=== PATIENT | female | born 1930 | race Caucasian/White ===

== ENCOUNTER 2017-06-10 09:54 | Inpatient (IN) | payer MEDICARE ==
[~2017-06-10] VITALS: Ht 170.2 cm; Wt 65.1 kg
[2017-06-10] MEDS ORDERED: IBUP-1484 PO (10:28)
[2017-06-10] MEDS ORDERED: DIGO125T PO (10:28)
[2017-06-10] MEDS ORDERED: SODIUM CHLORIDE FLUSH 10ML SYR IVF ONE (11:00)
[2017-06-10] MEDS ORDERED: CEFTRIAXONE PMX 1GM/50ML 50 ML IV ONE (11:00)
[2017-06-10 11:46] LABS: BASOPHILS % (AUTO) 0 % (0-1); EOSINOPHILS # (AUTO) 0.01 x10^3/uL (0-0.4); EOSINOPHILS % (AUTO) 0 % (1-7); LYMPHOCYTES % (AUTO) 5 % (22-44); MD NO; MEAN CORPUSCULAR HGB CONC 32.9 g/dL (32.4-35.8); MEAN CORPUSCULAR VOLUME 94.2 fL (80-100); MEAN PLATELET VOLUME 8.4 fL (7.4-10.4); MONOCYTES # (AUTO) 0.09 x10^3/uL (0.2-0.8); MONOCYTES % (AUTO) 1 % (2-9); NEUTROPHILS # (AUTO) 7.58 x10^3/uL (1.8-6.8); NEUTROPHILS % (AUTO) 94 % (42-75); PLATELET COUNT 175 x10^3/uL (130-400); RED BLOOD COUNT 4.66 x10^6/uL (3.82-5.3); RED CELL DISTRIBUTION WIDTH 18.1 % (9.6-15.2)
[2017-06-10 11:53] LABS: INTERNATIONAL NORMALIZED RATIO 1.45 (0.93-1.1)
[2017-06-10 11:57] LABS: ALANINE AMINOTRANSFERASE 16 U/L (12-78); ALBUMIN 2.5 g/dL (3.4-5.0); ANION GAP 9 mmol/L (5-15); CALCIUM 7.6 mg/dL (8.5-10.1); CHLORIDE 109 mmol/L (98-107); CREATININE 0.78 mg/dL (0.55-1.02)
[2017-06-10 11:59] LABS: ALKALINE PHOSPHATASE 63 U/L (45-117); BILIRUBIN,TOTAL 1.7 mg/dL (0.2-1.0); TOTAL PROTEIN 5.5 g/dL (6.4-8.2)
[2017-06-10] MEDS ORDERED: CEFTRIAXONE PMX 1GM/50ML 50 ML ONE (12:01)
[2017-06-10 12:52] LABS: CULTURE INDICATED? YES; MICROSCOPIC INDICATED
[2017-06-10] MEDS ORDERED: SODIUM CHLORIDE 0.9%, 500ML IVBOLUS ONE (14:00)
[2017-06-10] MEDS ORDERED: LABETALOL 5MG/ML, 20ML IVPush PRN (14:30)
[2017-06-10] MEDS ORDERED: ONDANSETRON 2MG/ML, 2ML IVPush PRN (14:30)
[2017-06-10] MEDS ORDERED: ONDANSETRON ODT 4 MG PO PRN (14:30)
[2017-06-10] MEDS ORDERED: BISACODYL 10 MG SUPP PR PRN (14:30)
[2017-06-10] MEDS ORDERED: ACETAMINOPHEN 325 MG TABLET PO PRN (14:30)
[2017-06-10] MEDS ORDERED: TRAZODONE 50MG TABLET PO PRN (14:30)
[2017-06-10] MEDS ORDERED: POLYETHYLENE GLYCOL 17 GM PACKET PO PRN (14:30)
[2017-06-10] MEDS ORDERED: DOCUSATE 100 MG CAPSULE PO PRN (14:30)
[2017-06-10] MEDS ORDERED: LIDOCAINE 1%, 20ML ONE (15:35)
[2017-06-10 15:36] LABS: HCT (SEDRATE) 43.9 % (34.6-47.8)
[2017-06-10 15:39] LABS: C-REACTIVE PROTEIN, QUANT 5.8 mg/dL (0.02-0.49); THYROID STIMULATING HORMONE 2.54 mIU/L (0.358-3.740)
[2017-06-10 16:30] LABS: HEMOGLOBIN A1C 5.4 % (4.2-6.3)
[2017-06-10] MEDS ORDERED: HEPARIN 5,000 UNITS/ML, 1ML ONE (17:27)
[2017-06-10] MEDS: HEPARIN 5,000 UNITS/ML, 1ML SQ SCH (17:28)
[2017-06-10 18:38] VITALS: BP 115/67
[2017-06-10 20:00] VITALS: BP 119/76
[2017-06-10] MEDS: FUROSEMIDE 40 MG/4 ML IV SCH (21:11)
[2017-06-10] MEDS: FAMOTIDINE 20 MG TABLET PO SCH (21:14)
[2017-06-11] MEDS ORDERED: CEFTRIAXONE PMX 1GM/50ML 50 ML IV SCH
[2017-06-11] MEDS: CEFTRIAXONE 1,000 MG in DEXTROSE 5% 50 ML IV SCH ×2 (00:07→12:04)
[2017-06-11] MEDS: HEPARIN 5,000 UNITS/ML, 1ML SQ SCH ×3 (01:05→16:38)
[2017-06-11 01:26] VITALS: BP 124/75
[2017-06-11] MEDS: ASPIRIN 325 MG TABLET EC PO SCH (05:37)
[2017-06-11 05:56] LABS: CHLORIDE 106 mmol/L (98-107)
[2017-06-11 06:00] LABS: BASOPHILS % (AUTO) 0 % (0-1); EOSINOPHILS # (AUTO) 0.03 x10^3/uL (0-0.4); EOSINOPHILS % (AUTO) 0 % (1-7); LYMPHOCYTES # (AUTO) 0.83 x10^3/uL (1-3.4); LYMPHOCYTES % (AUTO) 8 % (22-44); MD NO; MEAN CORPUSCULAR HEMOGLOBIN 31.5 pg (27.0-34.8); MEAN CORPUSCULAR HGB CONC 33.2 g/dL (32.4-35.8); MEAN CORPUSCULAR VOLUME 94.9 fL (80-100); MEAN PLATELET VOLUME 8.8 fL (7.4-10.4); MONOCYTES # (AUTO) 0.52 x10^3/uL (0.2-0.8); MONOCYTES % (AUTO) 5 % (2-9); NEUTROPHILS # (AUTO) 9.25 x10^3/uL (1.8-6.8); NEUTROPHILS % (AUTO) 87 % (42-75); PLATELET COUNT 171 x10^3/uL (130-400); RED BLOOD COUNT 4.74 x10^6/uL (3.82-5.3); RED CELL DISTRIBUTION WIDTH 18.3 % (9.6-15.2)
[2017-06-11 06:05] LABS: ANION GAP 6 mmol/L (5-15); CALCIUM 7.7 mg/dL (8.5-10.1); CHOL/HDL RATIO 1.9; CHOLESTEROL, TOTAL 77 mg/dL (140-239); CREATININE 0.85 mg/dL (0.55-1.02); HDL CHOL % 53 % (28-40); HDL CHOLESTEROL (DIRECT) 41 mg/dL (40-60); LDL CHOLESTEROL,CALCULATED 24 mg/dL (54-169); LDL/HDL RATIO 0.6 (0.5-3.0); TRIGLYCERIDES 60 mg/dL (50-200); VLDL CHOLESTEROL 12 mg/dL (0-25)
[2017-06-11 07:11] VITALS: BP 119/76
[2017-06-11] MEDS: FUROSEMIDE 40 MG/4 ML IV SCH ×2 (08:40→20:53)
[2017-06-11] MEDS: FAMOTIDINE 20 MG TABLET PO SCH ×2 (08:46→20:57)
[2017-06-11 16:09] VITALS: BP 125/60
[2017-06-11 20:00] VITALS: BP 101/61
[2017-06-12] MEDS: CEFTRIAXONE 1,000 MG in DEXTROSE 5% 50 ML IV SCH ×2 (00:42→11:51)
[2017-06-12] MEDS: HEPARIN 5,000 UNITS/ML, 1ML SQ SCH ×3 (00:42→16:15)
[2017-06-12 02:00] VITALS: BP 104/54
[2017-06-12 05:48] LABS: BASOPHILS # (AUTO) 0.01 x10^3/uL (0-0.1); BASOPHILS % (AUTO) 0 % (0-1); EOSINOPHILS # (AUTO) 0.09 x10^3/uL (0-0.4); EOSINOPHILS % (AUTO) 1 % (1-7); LYMPHOCYTES # (AUTO) 1.09 x10^3/uL (1-3.4); LYMPHOCYTES % (AUTO) 10 % (22-44); MD NO; MEAN CORPUSCULAR HEMOGLOBIN 31.2 pg (27.0-34.8); MEAN CORPUSCULAR HGB CONC 32.6 g/dL (32.4-35.8); MEAN CORPUSCULAR VOLUME 95.9 fL (80-100); MEAN PLATELET VOLUME 9.1 fL (7.4-10.4); MONOCYTES # (AUTO) 0.63 x10^3/uL (0.2-0.8); MONOCYTES % (AUTO) 6 % (2-9); NEUTROPHILS # (AUTO) 9.28 x10^3/uL (1.8-6.8); NEUTROPHILS % (AUTO) 84 % (42-75); PLATELET COUNT 171 x10^3/uL (130-400); RED BLOOD COUNT 4.54 x10^6/uL (3.82-5.3); RED CELL DISTRIBUTION WIDTH 18.3 % (9.6-15.2)
[2017-06-12] MEDS: ASPIRIN 325 MG TABLET EC PO SCH (05:48)
[2017-06-12 06:07] LABS: ANION GAP 6 mmol/L (5-15); CALCIUM 7.3 mg/dL (8.5-10.1); CHLORIDE 104 mmol/L (98-107)
[2017-06-12 06:10] LABS: CREATININE 1.03 mg/dL (0.55-1.02)
[2017-06-12 06:55] VITALS: BP 132/81
[2017-06-12] MEDS: FAMOTIDINE 20 MG TABLET PO SCH ×2 (09:00→19:52)
[2017-06-12] MEDS: FUROSEMIDE 40 MG/4 ML IV SCH ×2 (09:50→19:52)
[2017-06-12 13:38] VITALS: BP 109/71
[2017-06-12 19:11] VITALS: BP 114/73
[2017-06-13] MEDS: CEFTRIAXONE 1,000 MG in DEXTROSE 5% 50 ML IV SCH ×2 (00:41→11:22)
[2017-06-13] MEDS: HEPARIN 5,000 UNITS/ML, 1ML SQ SCH ×2 (00:42→08:54)
[2017-06-13 00:55] VITALS: BP 143/81
[2017-06-13] MEDS: ASPIRIN 325 MG TABLET EC PO SCH (05:22)
[2017-06-13] MEDS ORDERED: FURO20TA3 PO ×2 (06:33→06:46)
[2017-06-13] MEDS ORDERED: ACET325T14 PO (06:33)
[2017-06-13 08:00] VITALS: BP 123/69
[2017-06-13] MEDS: FAMOTIDINE 20 MG TABLET PO SCH (08:54)
[2017-06-13] MEDS ORDERED: PNEUMOCOCCAL 23 VACCINE IM-VACC ONE (11:30)
[2017-06-13 12:28] VITALS: BP 112/76
[2017-06-13 12:45] VITALS: BP 112/76
== END 2017-06-13 14:43 | DRG 871 ==
LOC: ED 13:07 → EDIP 13:08 → ED 13:39 → 4EST 18:09
PROVIDERS: ADMIT Internal Medicine; ATTEND Internal Medicine
PROC: 0W9B3ZZ Drainage of Left Pleural Cavity, Percutaneous Approach (ICD-10-PCS; principal; 2017-06-10)
PROC: 0T9B70Z Drainage of Bladder with Drainage Device, Via Natural or Artificial Opening (ICD-10-PCS; 2017-06-10)
DX: A41.9 Sepsis, unspecified organism (principal); I50.33 Acute on chronic diastolic (congestive) heart failure; G93.41 Metabolic encephalopathy; J90 Pleural effusion, not elsewhere classified; E44.0 Moderate protein-calorie malnutrition; D68.9 Coagulation defect, unspecified; L03.115 Cellulitis of right lower limb; I48.91 Unspecified atrial fibrillation; E83.51 Hypocalcemia; L03.116 Cellulitis of left lower limb; N39.0 Urinary tract infection, site not specified; J98.11 Atelectasis; R17 Unspecified jaundice; R09.02 Hypoxemia; F03.90 Unspecified dementia, unspecified severity, without behavioral disturbance, psychotic disturbance, mood disturbance, and anxiety; I73.9 Peripheral vascular disease, unspecified; Z87.891 Personal history of nicotine dependence; Z23 Encounter for immunization; Z68.22 Body mass index [BMI] 22.0-22.9, adult
CPT/HCPCS: 32555; 36415; 70450; 71045; 80048; 80053; 80061; 81001; 82042; 82150; 82945; 83036; 83605; 83615; 83690; 83735; 83986; 84100; 84145; 84157; 84443; 84560; 85025; 85610; 85651; 86140; 87015; 87040; 87070; 87075; 87086; 87102; 87116; 87205; 87206; 88112; 88305; 89050; 89051; 90732; 93005; 93306; 96365; 96372; J0696; J1644; J1940; J3490; J7040

== ENCOUNTER 2017-12-19 12:24 | Inpatient (IN) | payer MEDICARE ==
[~2017-12-19] VITALS: Ht 160 cm; Wt 51.0 kg
[~2017-12-19 12:24] MED LIST: ACET325T14 PO; DIGO125T PO; FURO20TA3 PO; IBUP-1484 PO
[2017-12-19] MEDS ORDERED: CEFTRIAXONE 1,000 MG in SODIUM CHLORIDE 0.9% 50 ML IVPB ONE (13:00)
[2017-12-19] MEDS ORDERED: SODIUM CHLORIDE 0.9% 1,000ML IVBOLUS ONE (13:00)
[2017-12-19] MEDS ORDERED: SODIUM CHLORIDE FLUSH 10ML SYR IVF ONE (13:00)
[2017-12-19] MEDS ORDERED: CEFTRIAXONE PMX 1GM/50ML 50 ML ONE (13:14)
[2017-12-19] MEDS ORDERED: MULT-257 PO (13:22)
[2017-12-19 13:30] LABS: ALBUMIN 3.4 g/dL (3.4-5.0); ANION GAP 8 mmol/L (5-15); CHLORIDE 108 mmol/L (98-107)
[2017-12-19 13:36] LABS: ALANINE AMINOTRANSFERASE 18 U/L (12-78); ALKALINE PHOSPHATASE 93 U/L (45-117); BILIRUBIN,TOTAL 1.7 mg/dL (0.2-1.0); CREATININE 0.92 mg/dL (0.55-1.02); TOTAL PROTEIN 7.3 g/dL (6.4-8.2); TROPONIN I 0.038 ng/mL (0.000-0.045)
[2017-12-19 13:51] LABS: BASOPHILS # (AUTO) 0.05 x10^3/uL (0-0.1); BASOPHILS % (AUTO) 1 % (0-1); EOSINOPHILS # (AUTO) 0.04 x10^3/uL (0-0.4); EOSINOPHILS % (AUTO) 1 % (1-7); LYMPHOCYTES # (AUTO) 1.36 x10^3/uL (1-3.4); LYMPHOCYTES % (AUTO) 17 % (22-44); MD SCAN; MEAN CORPUSCULAR HEMOGLOBIN 31.7 pg (27.0-34.8); MEAN CORPUSCULAR HGB CONC 32.9 g/dL (32.4-35.8); MEAN CORPUSCULAR VOLUME 96.1 fL (80-100); MEAN PLATELET VOLUME 7.9 fL (7.4-10.4); MONOCYTES # (AUTO) 0.49 x10^3/uL (0.2-0.8); MONOCYTES % (AUTO) 6 % (2-9); NEUTROPHILS # (AUTO) 6.05 x10^3/uL (1.8-6.8); NEUTROPHILS % (AUTO) 76 % (42-75); PLATELET COUNT 239 x10^3/uL (130-400); RED BLOOD COUNT 4.15 x10^6/uL (3.82-5.3); RED CELL DISTRIBUTION WIDTH 17.1 % (9.6-15.2)
[2017-12-19] MEDS ORDERED: METOPROLOL 1 MG/ML, 5ML IVPush ONE (14:16)
[2017-12-19] MEDS ORDERED: METOPROLOL 1 MG/ML, 5ML ONE (14:17)
[2017-12-19] MEDS ORDERED: FUROSEMIDE 40 MG/4 ML ONE (15:11)
[2017-12-19 15:12] LABS: MICROSCOPIC INDICATED
[2017-12-19 15:27] LABS: CULTURE INDICATED? NO
[2017-12-19] MEDS ORDERED: FUROSEMIDE 40 MG/4 ML IV ONE (15:30)
[2017-12-19] MEDS ORDERED: ONDANSETRON ODT 4 MG PO PRN (16:30)
[2017-12-19] MEDS ORDERED: DOCUSATE 100 MG CAPSULE PO PRN (16:30)
[2017-12-19] MEDS ORDERED: GABAPENTIN 300 MG CAPSULE PO PRN (16:30)
[2017-12-19] MEDS ORDERED: PROMETHAZINE 25 MG/ML, 1ML IM PRN (16:30)
[2017-12-19] MEDS ORDERED: hydrALAzine 20 MG/ML, 1ML IVPush PRN (16:30)
[2017-12-19] MEDS ORDERED: LABETALOL 5MG/ML, 20ML IVPush PRN (16:30)
[2017-12-19] MEDS ORDERED: ACETAMINOPHEN 325 MG TABLET PO PRN (16:30)
[2017-12-19] MEDS ORDERED: MORPHINE SULFATE 4 MG/ML, 1ML IVPush PRN (16:30)
[2017-12-19] MEDS ORDERED: ONDANSETRON 2MG/ML, 2ML IVPush PRN (16:30)
[2017-12-19] MEDS: FUROSEMIDE 20 MG/2 ML IV SCH (16:30)
[2017-12-19] MEDS ORDERED: BISACODYL 10 MG SUPP PR PRN (16:30)
[2017-12-19] MEDS ORDERED: POLYETHYLENE GLYCOL 17 GM PACKET PO PRN (16:30)
[2017-12-19 16:44] LABS: FREE T4 (FREE THYROXINE) 1.11 ng/dL (0.76-1.46)
[2017-12-19 16:55] LABS: HEMOGLOBIN A1C 5.6 % (4.2-6.3)
[2017-12-19] MEDS ORDERED: ALBUTEROL SULFATE 2.5 MG/3 ML ONE (17:13)
[2017-12-19] MEDS ORDERED: OMNIPAQUE 350 MG/ML, 100ML BOTTLE ONE (17:17)
[2017-12-19] MEDS ORDERED: ALBUTEROL SULFATE 2.5 MG/3 ML NPPB PRN (18:00)
[2017-12-19 20:10] VITALS: BP 144/81
[2017-12-19] MEDS: HEPARIN 5,000 UNITS/ML, 1ML SQ SCH (20:57)
[2017-12-19] MEDS ORDERED: FURO40SO5 PO (21:02)
[2017-12-19] MEDS ORDERED: DIGO0.12 PO (21:03)
[2017-12-19 21:09] VITALS: BP 144/81
[2017-12-19] MEDS ORDERED: hydrALAzine 20 MG/ML, 1ML ONE (22:42)
[2017-12-20] MEDS: HEPARIN 5,000 UNITS/ML, 1ML SQ SCH ×3 (00:01→17:33)
[2017-12-20 02:15] VITALS: BP 136/76
[2017-12-20 05:43] LABS: BASOPHILS # (AUTO) 0.03 x10^3/uL (0-0.1); BASOPHILS % (AUTO) 0 % (0-1); EOSINOPHILS # (AUTO) 0.02 x10^3/uL (0-0.4); EOSINOPHILS % (AUTO) 0 % (1-7); LYMPHOCYTES # (AUTO) 1.02 x10^3/uL (1-3.4); LYMPHOCYTES % (AUTO) 13 % (22-44); MD NO; MEAN CORPUSCULAR HEMOGLOBIN 31.4 pg (27.0-34.8); MEAN CORPUSCULAR HGB CONC 32.6 g/dL (32.4-35.8); MEAN CORPUSCULAR VOLUME 96.4 fL (80-100); MEAN PLATELET VOLUME 8.4 fL (7.4-10.4); MONOCYTES # (AUTO) 0.66 x10^3/uL (0.2-0.8); MONOCYTES % (AUTO) 8 % (2-9); NEUTROPHILS # (AUTO) 6.41 x10^3/uL (1.8-6.8); NEUTROPHILS % (AUTO) 79 % (42-75); PLATELET COUNT 205 x10^3/uL (130-400); RED CELL DISTRIBUTION WIDTH 16.5 % (9.6-15.2)
[2017-12-20 05:55] LABS: ALANINE AMINOTRANSFERASE 21 U/L (12-78); ALBUMIN 3.2 g/dL (3.4-5.0); ANION GAP 9 mmol/L (5-15); CALCIUM 8.5 mg/dL (8.5-10.1); CHLORIDE 106 mmol/L (98-107)
[2017-12-20] MEDS: ASPIRIN 325 MG TABLET EC PO SCH (06:00)
[2017-12-20 06:06] LABS: ALKALINE PHOSPHATASE 84 U/L (45-117); BILIRUBIN,TOTAL 1.5 mg/dL (0.2-1.0); CREATININE 0.91 mg/dL (0.55-1.02)
[2017-12-20 08:04] VITALS: BP 174/99
[2017-12-20] MEDS: FUROSEMIDE 20 MG/2 ML IV SCH (10:14)
[2017-12-20] MEDS ORDERED: LIDOCAINE-MPF 2%, 2ML ONE (14:32)
[2017-12-20 15:54] VITALS: BP 142/94
[2017-12-20] MEDS: MULTIVITAMINS/MINERALS TABLET PO SCH (17:35)
[2017-12-20] MEDS: CHOLECALCIFEROL 1,000 UNIT TABLET PO SCH (17:35)
[2017-12-20 19:28] VITALS: BP 138/74
[2017-12-21 01:25] VITALS: BP 132/75
[2017-12-21] MEDS: HEPARIN 5,000 UNITS/ML, 1ML SQ SCH ×3 (02:19→18:01)
[2017-12-21 04:34] LABS: ANION GAP 6 mmol/L (5-15); CALCIUM 8.2 mg/dL (8.5-10.1); CHLORIDE 106 mmol/L (98-107); CREATININE 0.91 mg/dL (0.55-1.02)
[2017-12-21 07:25] VITALS: BP 132/60
[2017-12-21] MEDS: FUROSEMIDE 20 MG/2 ML IV SCH (09:56)
[2017-12-21] MEDS: CHOLECALCIFEROL 1,000 UNIT TABLET PO SCH (09:56)
[2017-12-21] MEDS: MULTIVITAMINS/MINERALS TABLET PO SCH (09:56)
[2017-12-21] MEDS: ASPIRIN 325 MG TABLET EC PO SCH (09:56)
[2017-12-21 13:13] VITALS: BP 122/79
[2017-12-21] MEDS: METOPROLOL TARTRATE 25 MG TABLET PO SCH (18:01)
[2017-12-21 19:08] VITALS: BP 122/76
[2017-12-22 01:32] VITALS: BP 128/76
[2017-12-22] MEDS: HEPARIN 5,000 UNITS/ML, 1ML SQ SCH ×3 (01:43→17:43)
[2017-12-22] MEDS: ASPIRIN 325 MG TABLET EC PO SCH ×2 (05:15→09:53)
[2017-12-22] MEDS: METOPROLOL TARTRATE 25 MG TABLET PO SCH ×3 (05:15→17:44)
[2017-12-22 08:00] VITALS: BP 129/68
[2017-12-22] MEDS: CHOLECALCIFEROL 1,000 UNIT TABLET PO SCH (09:54)
[2017-12-22] MEDS: FUROSEMIDE 20 MG/2 ML IV SCH (09:54)
[2017-12-22] MEDS: MULTIVITAMINS/MINERALS TABLET PO SCH (09:54)
[2017-12-22 13:21] VITALS: BP 136/89
[2017-12-22 20:00] VITALS: BP 124/75
[2017-12-23] MEDS: HEPARIN 5,000 UNITS/ML, 1ML SQ SCH ×3 (01:41→17:58)
[2017-12-23 01:58] VITALS: BP 138/85
[2017-12-23 05:34] VITALS: BP 150/83
[2017-12-23] MEDS: METOPROLOL TARTRATE 25 MG TABLET PO SCH ×2 (05:37→17:58)
[2017-12-23] MEDS: ASPIRIN 325 MG TABLET EC PO SCH (05:37)
[2017-12-23 07:18] VITALS: BP 142/87
[2017-12-23] MEDS: MULTIVITAMINS/MINERALS TABLET PO SCH (08:50)
[2017-12-23] MEDS: CHOLECALCIFEROL 1,000 UNIT TABLET PO SCH (08:51)
[2017-12-23] MEDS: FUROSEMIDE 20 MG/2 ML IV SCH (08:51)
[2017-12-23 14:18] VITALS: BP 126/68
[2017-12-23 20:00] VITALS: BP 107/67
[2017-12-24] MEDS: HEPARIN 5,000 UNITS/ML, 1ML SQ SCH ×3 (01:34→17:34)
[2017-12-24 01:51] VITALS: BP 145/84
[2017-12-24] MEDS: METOPROLOL TARTRATE 25 MG TABLET PO SCH ×2 (06:07→17:40)
[2017-12-24] MEDS: ASPIRIN 325 MG TABLET EC PO SCH (06:10)
[2017-12-24 07:09] VITALS: BP 150/97
[2017-12-24] MEDS: MULTIVITAMINS/MINERALS TABLET PO SCH (08:21)
[2017-12-24] MEDS: CHOLECALCIFEROL 1,000 UNIT TABLET PO SCH (08:21)
[2017-12-24] MEDS ORDERED: FUROSEMIDE 40 MG TABLET PO SCH (09:00)
[2017-12-24 12:17] VITALS: BP 142/88
[2017-12-24 20:17] VITALS: BP 136/73
[2017-12-25] MEDS: HEPARIN 5,000 UNITS/ML, 1ML SQ SCH (01:31)
[2017-12-25 01:48] VITALS: BP 113/62
[2017-12-25] MEDS: ASPIRIN 325 MG TABLET EC PO SCH (06:00)
[2017-12-25] MEDS: METOPROLOL TARTRATE 25 MG TABLET PO SCH ×2 (06:17→18:09)
[2017-12-25 08:04] VITALS: BP 97/55
[2017-12-25] MEDS: CHOLECALCIFEROL 1,000 UNIT TABLET PO SCH (09:54)
[2017-12-25] MEDS: MULTIVITAMINS/MINERALS TABLET PO SCH (09:55)
[2017-12-25] MEDS: FUROSEMIDE 40 MG TABLET PO SCH ×2 (09:55→20:39)
[2017-12-25] MEDS: ENOXAPARIN 40 MG/0.4 ML SQ SCH (09:56)
[2017-12-25 12:46] VITALS: BP 95/58
[2017-12-25 18:07] VITALS: BP 127/44
[2017-12-25 18:55] VITALS: BP 123/75
[2017-12-26 00:10] VITALS: BP 142/90
[2017-12-26] MEDS: METOPROLOL TARTRATE 25 MG TABLET PO SCH (05:51)
[2017-12-26] MEDS: ASPIRIN 325 MG TABLET EC PO SCH (05:51)
[2017-12-26] MEDS: FUROSEMIDE 40 MG TABLET PO SCH (09:00)
[2017-12-26] MEDS ORDERED: FUROSEMIDE 20 MG TABLET ONE (09:36)
[2017-12-26] MEDS: CHOLECALCIFEROL 1,000 UNIT TABLET PO SCH (09:41)
[2017-12-26] MEDS: MULTIVITAMINS/MINERALS TABLET PO SCH (09:42)
[2017-12-26] MEDS: ENOXAPARIN 40 MG/0.4 ML SQ SCH (09:42)
[2017-12-26] MEDS ORDERED: FURO40TA6 PO (10:54)
[2017-12-26] MEDS ORDERED: CHOL10003 PO (10:54)
[2017-12-26] MEDS ORDERED: ASPI-650 PO (10:54)
[2017-12-26] MEDS ORDERED: METO25TA35 PO (10:54)
[2017-12-26] MEDS ORDERED: ACET325T14 PO (10:54)
[2017-12-26 13:25] VITALS: BP 105/56
== END 2017-12-26 14:10 | DRG 291 ==
LOC: ED 13:26 → EDIP 14:43 → 3NE 18:30 → 4WST 19:59
PROVIDERS: ADMIT Internal Medicine; ATTEND Internal Medicine
PROC: 0T9B70Z Drainage of Bladder with Drainage Device, Via Natural or Artificial Opening (ICD-10-PCS; 2017-12-19)
PROC: 0W993ZZ Drainage of Right Pleural Cavity, Percutaneous Approach (ICD-10-PCS; principal; 2017-12-20)
DX: I11.0 Hypertensive heart disease with heart failure (principal); J96.01 Acute respiratory failure with hypoxia; J90 Pleural effusion, not elsewhere classified; I50.33 Acute on chronic diastolic (congestive) heart failure; I48.2 Chronic atrial fibrillation; Z66 Do not resuscitate; I08.3 Combined rheumatic disorders of mitral, aortic and tricuspid valves; I27.20 Pulmonary hypertension, unspecified; F03.90 Unspecified dementia, unspecified severity, without behavioral disturbance, psychotic disturbance, mood disturbance, and anxiety; Z51.5 Encounter for palliative care; G93.89 Other specified disorders of brain; I73.9 Peripheral vascular disease, unspecified; Z79.899 Other long term (current) drug therapy; Z79.1 Long term (current) use of non-steroidal anti-inflammatories (NSAID); Z79.2 Long term (current) use of antibiotics
CPT/HCPCS: 32555; 36415; 70450; 71045; 71275; 80048; 80053; 81001; 82306; 82607; 82945; 83036; 83605; 83615; 83735; 83880; 84157; 84439; 84443; 84484; 85025; 87040; 87070; 87205; 88112; 89051; 93005; 93306; 94640; 96365; 96375; 99285; G0378; J0696; J1644; J1650; J1940; J3490; Q9967; 92523-GN; J0360; J7030